=== PATIENT | male | born 1950 | race Caucasian/White ===

== ENCOUNTER 2017-08-02 12:38 | Emergency (ER) | payer OTHER ==
--- NOTE | 2017-08-02 13:26 | EDPHY ---
H & P Stated Complaint: constipation. HPI/ROS: CHIEF COMPLAINT: Constipation, abdominal pain HISTORY OF PRESENT ILLNESS: This patient is a 67 year old male with history of Parkinson's disease, obesity , diabetes, and gout complaining of constipation ongoing for the past week. This morning he had a manual disimpaction at [facility] ([facility]) but he continues to feel quite a bit of abdominal pain and has not had a bowel movement on his own today. The patient has also been unable to urinate since early yesterday. He has frequent constipation and usually takes Senokot twice daily. His primary complaint now is generalized abdominal pain and the need to move his bowels. He denies fever, vomiting, chest pain, shortness of breath, or other associated symptoms. REVIEW OF SYSTEMS: A ten point review of systems was performed and is negative with the exception of the items mentioned in the HPI. Past medical history: 1. Parkinson's disease 2. Arthritis 3. Gout 4. Diabetes 5. Obesity Past surgical history: Left wrist Family history: Noncontributory. Social history: Lives in [place] with his . Primary care through [facility]. General Appearance: Alert. Vital signs reviewed. BP 132/99. Eyes: Pupils equal and round, no conjunctival injection, no discharge. Anicteric. Respiratory: Lungs are clear to auscultation; no wheezes, rales, or rhonchi. Cardiovascular: Regular rate and rhythm; no murmur, rub, or gallop. Gastrointestinal: Abdomen is obese,soft and nontender. Unable to assess for organomegaly due to body habitus. Skin: Warm and dry, no rashes on exposed skin, normal color. Back: Nontender to palpation over the thoracolumbar spine. Rectal: Soft brown stool in vault. External hemorrhoid. Neurological: Alert and oriented. Moving all four extremities spontaneously. Psychiatric: Normal affect. - Personal History Current Tetanus/Diphtheria Vaccine: Unsure Current Tetanus Diphtheria and Acellular Pertussis (TDAP): Unsure - Medical/Surgical History Hx Asthma: No Hx Chronic Respiratory Disease: No Hx Diabetes: Yes Hx Cardiac Disease: Yes Hx Renal Disease: No Hx Cirrhosis: No Hx Alcoholism: No Hx HIV/AIDS: No Hx Splenectomy or Spleen Trauma: No Other PMH: Neuropathy, Diplopia, Dysphagia, Edentulous, falls, Genu, Varu, Insomnia, Migranes, Depression, Morbid Obesity, Myclonic jerking, Sleep Apnea, Panic, Parkinsons, PAD, Polypharmacy, PTSD, RLS, Rotator cuff tear, Tardive Dyskinesia, AAA, Thrombocytopenia, Back pain, Digenertive Disc Disease, - Social History Smoking Status: Never smoked Constitutional: Initial Vital Signs Temperature (C) 36.6 C 08/02/17 12:38 Heart Rate 87 08/02/17 12:38 Respiratory Rate 16 08/02/17 12:38 Blood Pressure 132/99 H 08/02/17 12:38 O2 Sat (%) 92 08/02/17 12:38 O2 Delivery Mode Room Air Allergies/Adverse Reactions: adhesive tape Allergy (Verified 08/02/17 12:50) celecoxib [From Celebrex] Allergy (Verified 08/02/17 12:50) Cephalosporins Allergy (Verified 08/02/17 12:50) codeine Allergy (Verified 08/02/17 12:50) walnut Allergy (Verified 08/02/17 12:50) Home Medications: Medication Instructions Recorded Aspirin 81mg (*) 08/02/17 Carbidopa-Levo 25-100 mg Odt 08/02/17 Cholecalciferol (Vitamin D3) 08/02/17 Cymbalta 30 MG (*) 08/02/17 Glycerin 08/02/17 Ipratropium 08/02/17 LOTRISONE CREAM 08/02/17 Lantus 08/02/17 Lasix 40 MG (*) 08/02/17 Linzess 08/02/17 Lisinopril 08/02/17 Novolog Flexpen 08/02/17 Potassium Chloride 08/02/17 Ropinirole ER 08/02/17 Senna 08/02/17 Sennosides 08/02/17 Shingrix Vial Kit 08/02/17 Vicodin 5-300 mg Tablet 08/02/17 clonazePAM [CLONAZEPAM] 08/02/17 morphINE 08/02/17 Medical Decision Making Procedures: Digital removal of faeces Indication: Fecal impaction, inability to have a bowel movement. After verbal informed consent from patient explaining the risks and benefits of the procedure, manual disimpaction was performed with standard ED protocol. Patient was placed in left lateral position. Large external hemorrhoid present on exam. A large quantity of soft stool was removed from the rectal vault. The patient tolerated the procedure well. As the patient was unable to retain the soapsuds enema, manual disimpaction was again attempted. With the 2nd attempt a large quantity of soft brown stool was removed. This provided relief to him. He now feels as if he will be able to urinate also. ED Course/Re-evaluation: This 67 year old male presents with one week of constipation. Exam reveals soft stool in the rectal vault. Plan for manual disimpaction. 13:51 Performed manual disimpaction. Soft stool removed. The patient agrees to try an enema for further relief. 15 30: Patient has had difficulty retaining the enema. However he continues to feel as if he might move his bowels. He had 364 mL in his bladder on bladder scan. Second manual disimpaction performed, with removal of large quantity of stool. He is now able to urinate. He will be discharged home with FU with PCP recommended. Differential Diagnosis: I considered a differential diagnosis that includes but is not limited to bowel obstruction, constipation, impaction, GI bleed. Departure - Departure Disposition: Home, Routine, Self-Care Clinical Impression: Constipation Qualifiers: Constipation type: unspecified constipation type Qualified Code(s): K59.00 - Constipation, unspecified Condition: Good Instructions: Constipation (ED), High Fiber Diet (ED) Additional Instructions: Continue the bowel program that your doctor has prescribed. Referrals: Krishna Collins, [Non Staff and Non MD] - As per Instructions Report Scribed for: Caron Hardy Report Scribed by: Maria Alejandra Cortes Date of Report: 08/02/17 Physician Review and Approval Statement: 08/02/17 13:26 Portions of this note were transcribed by the biomedical repair technician. I, Dr. Caron Hardy, personally performed the history, physical exam, and medical decision- making; and confirmed the accuracy of the information in the transcribed note.
[2017-08-02 17:22] VITALS: BP 144/69; PULSE 69; RESP 18; TEMP 98.4; O2SAT 94
== END 2017-08-02 17:20 | disposition home or self-care (01) ==
LOC: EDUNIT#
DX: K59.00 Constipation, unspecified (principal); E11.9 Type 2 diabetes mellitus without complications; G20 Parkinson's disease; Z79.4 Long term (current) use of insulin; Z79.82 Long term (current) use of aspirin

== ENCOUNTER → 2018-07-20 | Outpatient (CLI) | payer OTHER | LOC: CIMAGING 10:33 | PROVIDERS: ATTEND Nurse Practitioner Family | DX: M84.84 Other disorders of continuity of bone, hand (principal) | CPT/HCPCS: 73110-PO ==